=== PATIENT | male | born 1930 | race Caucasian/White ===

== ENCOUNTER → 2017-02-03 | Outpatient (CLI) | payer OTHER ==
--- NOTE | 2017-02-03 14:24 | RAD ---
Indication hematuria. Grayscale imaging targeted to the kidneys was performed. The right kidney measures 11.4 x 5.9 x 5.4 cm. There is a 2.5 cm hypoechoic mass in the right kidney compatible with a cyst. There are 2 additional suggested masses, not compatible with simple cysts, in the right kidney each measuring approximately 2 cm. They could represent complicated cysts although solid masses are not excluded. Additional multiphase imaging with CT should be considered. The left kidney measures 12.1 x 5.2 x 6.9 cm. There is a 3 cm mass associated with the left kidney most compatible with a septated cyst. Within the dependent portion of the urinary bladder there is a mass measuring approximately 3 cm in greatest dimension. A solid neoplastic mass is not excluded. Cystoscopy should be considered. The prostate is enlarged. IMPRESSION there are possible 2 Indeterminate masses in the right kidney. While these could represent complicated cysts solid masses are not excluded. Note is made of bilateral renal cysts. 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 Cystoscopy should be considered. Enlarged prostate
== END | disposition home or self-care (01) ==
LOC: US 13:27
PROVIDERS: ATTEND Nurse Practitioner
DX: N40.0 Benign prostatic hyperplasia without lower urinary tract symptoms (principal); N28.89 Other specified disorders of kidney and ureter; R31.9 Hematuria, unspecified
CPT/HCPCS: 76770